=== PATIENT | female | born 1975 | race African-American/Black ===

== ENCOUNTER 2017-06-11 17:22 | Inpatient (IN) | payer BC ==
[~2017-06-11] VITALS: Ht 154.9 cm; Wt 102.2 kg
--- NOTE | 2017-06-11 17:22 | NUR ---
SENT BY DR ROWLEY FOR HYPERTENSION, TOOK LOPRESSOR 100MG METOPROLOL 100MG, NORVASC 10 THIS AM AROUND 10AM. PLACED ON MONITOR. AWAITING MD ORDER
[2017-06-11] MEDS ORDERED: FUROSEMIDE 40 MG/4 ML VIAL IV ONE (18:00)
[2017-06-11] MEDS ORDERED: FUROSEMIDE 40 MG/4 ML VIAL ONE (18:19)
[2017-06-11 18:21] LABS: BASOPHILS # (AUTO) 0.5 /CMM (0.0-0.2); BASOPHILS % (AUTO) 2.6 % (0.0-2.0); EOSINOPHILS % (AUTO) 0.4 % (0.0-6.0); HEMATOCRIT 40 % (33-45); HEMOGLOBIN 13.3 g/dL (11.5-14.8); LYMPHOCYTES # (AUTO) 5.2 /CMM (0.8-4.8); LYMPHOCYTES % (AUTO) 27.4 % (20.0-44.0); MEAN CORPUSCULAR HGB CONC 34 g/dl (31.0-36.0); MEAN CORPUSCULAR VOLUME 82 fL (82-100); MONOCYTES # (AUTO) 0.9 /CMM (0.1-1.30); NEUTROPHILS # (AUTO) 12.2 /CMM (1.8-8.9); NEUTROPHILS % (AUTO) 64.6 % (43.0-81.0); PLATELET COUNT (AUTO) 329 /CMM (150-450); RDW COEFFICIENT OF VARIATION 14.4 (11.5-15.0); RED BLOOD CELL COUNT(AUTO) 4.81 MIL/uL (4.0-5.2); WHITE BLOOD COUNT (AUTO) 18.9 K/uL (4.3-11.0)
[2017-06-11] MEDS ORDERED: METO100T14 PO (18:30)
[2017-06-11] MEDS ORDERED: SPIR25TA6 PO (18:30)
[2017-06-11] MEDS ORDERED: DAPA5TAB PO (18:30)
[2017-06-11] MEDS ORDERED: METF-440 PO (18:30)
[2017-06-11] MEDS ORDERED: ATOR20TA PO (18:30)
[2017-06-11] MEDS ORDERED: AMLO10TA6 PO (18:30)
[2017-06-11] MEDS ORDERED: LOSA50TA21 PO (18:30)
[2017-06-11 18:33] LABS: CALCIUM, SERUM 9.8 mg/dL (8.5-10.1); CREATININE 1.5 mg/dL (0.6-1.3); POTASSIUM 3.6 mmol/L (3.5-5.1)
[2017-06-11 18:45] LABS: ALBUMIN 4.1 g/dL (3.4-5.0); BILIRUBIN,DIRECT 0.1 mg/dL (0.0-0.2); BILIRUBIN,TOTAL 0.3 mg/dL (0.2-1.0); TOTAL PROTEIN, SERUM 8.6 g/dL (6.4-8.2)
--- NOTE | 2017-06-11 19:03 | NUR ---
CALLED DR KARLENE SARAH OFFICE AND A PAGE WAS SENT OUT.
--- NOTE | 2017-06-11 19:53 | NUR ---
DR. ROWLEY CALLED AGAIN; MESSAGE LEFT
--- NOTE | 2017-06-11 20:11 | NUR ---
REPORT GIVEN TO LUTHER
[2017-06-11 20:25] VITALS: BP 172/110
[2017-06-11 20:30] VITALS: BP 172/110
--- NOTE | 2017-06-11 20:30 | NUR ---
FISH AND WILDLIFE BIOLOGIST NOTES ADMITTED FROM ER UNDER THE SERVICE OF DR ROWLEY.CAME PER RAHAT WITH CHIEF COMPLAINTS OF INCREASED BLOOD PRESSURE.A/O X4,BREATHING REGULAR,WITH KNOWN HX OF HIGH BLOOD PRESSURE.WAS GIVEN LASIX 40MG IV IN ER.ON,FLOOR,VITAL SIGNS OF BP 172/110,PULSE-75,RR-2-,ORAL TEMP-98.2,O2 SAT 96% ON RA.DENIES HEADACHE OR CHEST PAIN.NO SKIN ISSUES,AMBULATORY.SALINE LOCK LFA INTACT AND PATENT.CALL LIGHT IN REACH,NEEDS ANTICIPATED.
--- NOTE | 2017-06-11 20:40 | NUR ---
RUG DRYING MACHINE OPERATOR NOTES DR ROWLEY WAS PAGE AWAITING TO CALL BACK.
--- NOTE | 2017-06-11 20:45 | NUR ---
BUSINESS DIRECTOR NOTES DR ROWLEY CALLED BACK WITH ORDERS NOTED AND CARRIED OUT.
[2017-06-11] MEDS ORDERED: ZOLPIDEM TARTRATE 10 MG TABLET PO PRN (21:30)
[2017-06-11] MEDS ORDERED: DEXTROSE 50%-WATER 50 ML DISP.SYRIN IV PRN (22:00)
[2017-06-11] MEDS ORDERED: ISOSORBIDE DINITRATE (10MG) 10 MG TABLET PO SCH (22:00)
[2017-06-11] MEDS ORDERED: hydrALAZINE HCL 25 MG TABLET PO SCH (22:00)
[2017-06-11] MEDS: ASPIRIN 81 MG TAB.CHEW PO SCH (22:06)
--- NOTE | 2017-06-11 22:06 | NUR ---
ROW BOSS HOEING NOTES STARTED ON APRESOLINE 25MG PO,ASPIRIN 81MG PO,ISORDIL 10MG PO AND LIPITOR 20MG PO ORDERED FOR BLOOD PRESSURE 172/110.
[2017-06-11] MEDS: ATORVASTATIN 10 MG TABLET PO SCH (22:07)
[2017-06-11] MEDS: BLOOD SUGAR DIAGNOSTIC 1 EACH STRIP VI SCH (22:07)
--- NOTE | 2017-06-11 22:15 | NUR ---
LEAD SQL DEVELOPER NOTES ACCU-CHECK BLOOD SUGAR CHECK 195,REFUSED INSULIN COVERAGE.SHE WANTS TO HOLD IT FOR NOW AND START TOMORROW
[2017-06-11] MEDS: *INSULIN REGULAR(HUMULIN R)HUM 100 UNIT/ML VIAL SQ PRN (22:17)
--- NOTE | 2017-06-11 22:30 | NUR ---
HELPDESK SPECIALIST NOTES SR 91 ON TELE MONITOR
[2017-06-12] VITALS: BP 144/95
--- NOTE | 2017-06-12 01:00 | NUR ---
PLASTERER SPRAY GUN NOTES SOUND ASLEEP,KEPT WARM ND COMFORTABLE.
[2017-06-12] MEDS: ACETAMINOPHEN 325 MG TABLET PO PRN ×4 (03:45→21:04)
--- NOTE | 2017-06-12 03:45 | NUR ---
BUTADIENE CONVERTER OPERATOR NOTES C/O HEADACHE,TYLENOL 650MG PO GIVEN ORDERED FOR HEADACHE.
[2017-06-12 04:00] VITALS: BP 158/96
--- NOTE | 2017-06-12 06:50 | NUR ---
VOICE STUDIES DIRECTOR NOTES BLOOD SUGAR CHECK 119,NO INSULIN COVERAGE.MRI CHECK LIST DONE FOR MRA OF RENAL ARTERIES TO R/O RENAL ARTERY STENOSIS.U/A STILL NEEDED FOR VMA RANDOM.CALL LIGHT IN REACH,NEEDS ATTENDED.WILL ENDORSE TO DAY NURSE FOR EMMETT.
--- NOTE | 2017-06-12 06:57 | NUR ---
TEXTED DR. HIRSCH FOR MRI APPROVAL.
--- NOTE | 2017-06-12 07:20 | NUR ---
MANAGER OF PRODUCT OPENING NOTES PATIENT RECEIVED AWAKE IN BED IN NO ACUTE SIGNS OF DISTRESS. DAUGHTER AT BEDSIDE, A/O X4, SAME ABLE TO MAKE NEEDS KNOWN, NO C/O PAIN OR DISCOMFORTS AT THIS TIME. ON ROOM AIR, RESPIRATIONS EVEN AND UNLABORED. ON TELE- MONITORING WITH CURRENT READING OF SR AND HR OF 72. IV ACCESS ON LEFT FA G#20 INTACT AND PATENT. BED IN LOW/LOCKED POSITION. CALL LIGHT WITHIN REACH. WILL CONTINUE TO MONITOR.
[2017-06-12] MEDS: BLOOD SUGAR DIAGNOSTIC 1 EACH STRIP VI SCH ×4 (07:37→21:04)
[2017-06-12 07:57] LABS: BASOPHILS # (AUTO) 0.1 /CMM (0.0-0.2); BASOPHILS % (AUTO) 1.2 % (0.0-2.0); EOSINOPHILS % (AUTO) 1.2 % (0.0-6.0); HEMATOCRIT 37 % (33-45); HEMOGLOBIN 12.5 g/dL (11.5-14.8); LYMPHOCYTES % (AUTO) 32.9 % (20.0-44.0); MEAN CORPUSCULAR HGB CONC 34 g/dl (31.0-36.0); MEAN CORPUSCULAR VOLUME 82 fL (82-100); MONOCYTES # (AUTO) 0.5 /CMM (0.1-1.30); MONOCYTES % (AUTO) 4.1 % (2.0-12.0); NEUTROPHILS # (AUTO) 7.5 /CMM (1.8-8.9); NEUTROPHILS % (AUTO) 60.6 % (43.0-81.0); PLATELET COUNT (AUTO) 260 /CMM (150-450); RDW COEFFICIENT OF VARIATION 14.2 (11.5-15.0); RED BLOOD CELL COUNT(AUTO) 4.53 MIL/uL (4.0-5.2); WHITE BLOOD COUNT (AUTO) 12.2 K/uL (4.3-11.0)
[2017-06-12 08:02] LABS: CALCIUM, SERUM 8.8 mg/dL (8.5-10.1); CREATININE 1.3 mg/dL (0.6-1.3); POTASSIUM 3.8 mmol/L (3.5-5.1)
[2017-06-12] MEDS: FUROSEMIDE 40 MG/4 ML VIAL IV SCH ×2 (09:13→17:24)
[2017-06-12] MEDS: AMLODIPINE BESYLATE 10 MG TABLET PO SCH (09:14)
[2017-06-12] MEDS: ISOSORBIDE DINITRATE (20MG) 20 MG TABLET PO SCH ×2 (09:15→17:00)
[2017-06-12] MEDS: ASPIRIN 81 MG TAB.CHEW PO SCH (09:15)
[2017-06-12] MEDS: SPIRONOLACTONE 25 MG TABLET PO SCH ×2 (09:15→17:27)
[2017-06-12] MEDS: LOSARTAN POTASSIUM 50 MG TABLET PO SCH ×2 (09:15→17:25)
[2017-06-12] MEDS: METOPROLOL TARTRATE 50 MG TABLET PO SCH ×2 (09:16→21:05)
[2017-06-12] MEDS: hydrALAZINE HCL 50 MG TABLET PO SCH ×3 (09:20→17:27)
[2017-06-12 13:00] VITALS: BP 139/92
[2017-06-12] MEDS ORDERED: GADOVERSETAMIDE 5 MMOL/10 ML VIAL IJ ONE (13:13)
[2017-06-12] MEDS ORDERED: GADOVERSETAMIDE 2.5 MMOL/5 ML VIAL IJ ONE (13:13)
[2017-06-12] MEDS: INSULIN REGULAR, HUMAN 100 UNIT/ML 3 ML VIAL SQ PRN ×2 (13:19→17:29)
--- NOTE | 2017-06-12 13:23 | NUR ---
RN NOTES PATIENT JUST HAD MRI OF ABDOMEN W/WO CONTRAST, RESULTS PENDING. NO SIGNS OF DISTRESS NOTED. BLOOD SUGAR CHECKED, 140 MGDL, PATIENT REFUSED INSULIN COVERAGE. WILL CONTINUE TO MONITOR.
--- NOTE | 2017-06-12 16:00 | NUR ---
RN NOTES PATIENT C/O HEADACHE, PRN TYLENOL TAB 650 MG GIVEN, WILL CONTINUE TO MONITOR.
[2017-06-12 16:22] VITALS: BP 155/101
--- NOTE | 2017-06-12 17:30 | NUR ---
RN NOTES PATIENT WITH BLOOD SUGAR OF 150MGDL AT THIS TIME, PT REFUSING INSULIN COVERAGE STATING THAT 150MMG/DL IS NOT HIGH FOR HER. WILL CONTINUE TO MONITOR.
[2017-06-12 18:14] LABS: APPEARANCE,URINE CLEAR (CLEAR); BILIRUBIN,URINE NEGATIVE (NEGATIVE); BLOOD, URINE NEGATIVE Ery/uL (NEGATIVE); COLOR,URINE YELLOW (YELLOW); KETONES,URINE NEGATIVE (NEGATIVE); LEUKOCYTE ESTERASE ,URINE NEGATIVE (NEGATIVE); NITRITE, URINE NEGATIVE (NEGATIVE); PH,URINE 6.5 (5.0-8.0); PROTEIN,URINE 1+ mg/dl (NEGATIVE); UGLUCOSE NEGATIVE (NEGATIVE); UROBILINOGEN,URINE 0.2 EU/dL (0.2)
[2017-06-12 18:39] LABS: BACTERIA,URINE None seen /HPF (None Seen); RBC,URINE NONE SEEN /HPF (0-2); SQUAMOUS EPITHELIAL CELL,UR Few /HPF (None Seen); WBC,URINE 0-2 /HPF (0-3)
--- NOTE | 2017-06-12 18:43 | NUR ---
GREASE AND TALLOW PUMPER CLOSING NOTES PATIENT AWAKE AND RESTING COMFORTABLY IN BED WITH DAUGHTER AT BEDSIDE. A/O X4. AMBULATORY AND VERBALLY RESPONSIVE. PT TOLERATING ROOM AIR WITH NO ACUTE RESPIRATORY DISTRESS NOTED. ON TELE- MONITORING WITH CURRENT READING OF SR AND HR OF 78. IV ACCESS ON LEFT FA G#20 INTACT AND PATENT, FLUSHES EASILY. HOB ELEVATED. MAINTAINED BED IN LOW/LOCKED POSITION. CALL LIGHT AND BEDSIDE TABLE PLACED WITHIN EASY REACH OF PT. ALL NEEDS AND CARE ATTENDED WELL. WILL ENDOSRED TO VETERINARY SURGERY TECHNICIAN NURSE FOR EMMETT.
--- NOTE | 2017-06-12 19:50 | NUR ---
NETWORK PROFESSIONAL INITIAL NOTE PT IS IN BED AWAKE AND ALERT, ABLE TO MAKE NEEDS KNOWN. DAUGHTER AT BEDSIDE. NO SIGNS OF SOB OR DISTRESS, BREATHING EVENLY AND UNLABORED ON RA. PT COMPLAINTS OF HAVING HEADACHES THROUGHOUT THE DAY AND BELIEVES IT MAY BE CAUSED BY ALL THE HTN MEDICATIONS SHE WAS GIVEN. NO HEADACHE AT THIS TIME. IV ACCESS IS INTACT AND PATENT. BED IS IN LOW AND LOCKED POSITION, CALL LIGHT WITHIN REACH. WILL CONTINUE TO MONITOR PT.
[2017-06-12 20:00] VITALS: BP 146/94
[2017-06-12] MEDS: ATORVASTATIN 10 MG TABLET PO SCH (21:05)
[2017-06-12] MEDS: *INSULIN REGULAR(HUMULIN R)HUM 100 UNIT/ML VIAL SQ PRN (21:31)
[2017-06-13] VITALS: BP 143/83
[2017-06-13 04:20] VITALS: BP 165/89
[2017-06-13 05:10] VITALS: BP 156/95
[2017-06-13] MEDS: BLOOD SUGAR DIAGNOSTIC 1 EACH STRIP VI SCH ×3 (06:06→17:22)
[2017-06-13] MEDS: INSULIN REGULAR, HUMAN 100 UNIT/ML 3 ML VIAL SQ PRN ×3 (06:06→17:22)
--- NOTE | 2017-06-13 06:07 | NUR ---
PRODUCER CLOSING NOTE PT IS IN BED AWAKE AND ALERT, ABLE TO MAKE NEEDS KNOWN. NO SIGNS OF SOB OR DISTRESS. PT CONTINUES TO REFUSE INSULIN- WILL ENDORSE TO FOLLOW UP ON METFORMIN. HEADACHE WAS RESOLVED WITH TYLENOL. NO ACUTE CHANGES THROUGHOUT THE SHIFT. ALL NEEDS WERE ANTICIPATED AND MET. BED IS IN LOW AND LOCKED POSITION, CALL LIGHT WITHIN REACH. WILL ENDORSE TO DAYSHIFT.
--- NOTE | 2017-06-13 07:22 | NUR ---
MANAGER INTERVENTIONAL OPENING NOTES RECEIVED PATIENT IN BED AWAKE IN BED A/O X4 IN NO ACUTE SIGNS OF DISTRESS. HOB ELEVATED. VERBALLY RESPONSIVE, NO C/O PAIN OR DISCOMFORTS AT THIS TIME. ON ROOM AIR, RESPIRATIONS EVEN AND UNLABORED. ON TELE- MONITORING WITH CURRENT READING OF SR AND HR OF 78. IV ACCESS ON LEFT FA G#20 INTACT AND PATENT. BED IN LOW/LOCKED POSITION. CALL LIGHT WITHIN REACH. WILL CONTINUE TO MONITOR
[2017-06-13 08:00] VITALS: BP 135/89
[2017-06-13] MEDS: FUROSEMIDE 40 MG/4 ML VIAL IV SCH (08:17)
[2017-06-13] MEDS: ISOSORBIDE DINITRATE (20MG) 20 MG TABLET PO SCH (08:18)
[2017-06-13] MEDS: ASPIRIN 81 MG TAB.CHEW PO SCH (08:18)
[2017-06-13] MEDS: AMLODIPINE BESYLATE 10 MG TABLET PO SCH (08:19)
[2017-06-13] MEDS: SPIRONOLACTONE 25 MG TABLET PO SCH ×2 (08:19→16:35)
[2017-06-13] MEDS: METOPROLOL TARTRATE 50 MG TABLET PO SCH (08:20)
[2017-06-13] MEDS: LOSARTAN POTASSIUM 50 MG TABLET PO SCH (08:20)
[2017-06-13] MEDS: hydrALAZINE HCL 50 MG TABLET PO SCH ×3 (09:00→16:39)
[2017-06-13] MEDS ORDERED: VALSARTAN 80 MG TABLET PO SCH (09:30)
[2017-06-13] MEDS: ACETAMINOPHEN 325 MG TABLET PO PRN (09:36)
[2017-06-13 10:03] LABS: ALBUMIN 3.4 g/dL (3.4-5.0); BILIRUBIN,TOTAL 0.5 mg/dL (0.2-1.0); CALCIUM, SERUM 8.8 mg/dL (8.5-10.1); CREATININE 1.4 mg/dL (0.6-1.3); POTASSIUM 3.4 mmol/L (3.5-5.1); TOTAL PROTEIN, SERUM 7.2 g/dL (6.4-8.2)
--- NOTE | 2017-06-13 10:11 | NUR ---
RN NOTES PATIENT COMPLAINTS OF HEADACHE THIS MORNING AFTER TAKING HER MULTIPLE BLOOD PRESSURE MEDS. PT ALSO VERBALIZED TO DR SR ABOUT HER HEADACHE AND DR SR SAID TO CHANGE OR DC SOME OF HER MEDS. PRN TYLENOL 650MG PO GIVEN WITH RELIEF. WILL CONTINUE TO MONITOR. .
--- NOTE | 2017-06-13 10:15 | NUR ---
RN NOTES PATIENT WITH NEW ORDER OF DIOVAN TAB 160MG DAILY FROM DR SR. BP TAKEN AND WAS 155/92MMHG, DIOVAN 160MG GIVEN ORDERED. WILL CONTINUE TO MONITOR.
--- NOTE | 2017-06-13 11:25 | NUR ---
RN NOTES PATIENT WITH LOW POTASSIUM LEVEL 3.4, K-DUR 40MEQ TAB WILL BE GIVEN.
[2017-06-13] MEDS ORDERED: POTASSIUM CHLORIDE 20 MEQ TAB.PRT.SR PO ONE (12:00)
[2017-06-13 16:00] VITALS: BP 155/99
--- NOTE | 2017-06-13 17:14 | NUR ---
RN NOTES PATIENT NOTED WITH BP OF 155/99 AT 1630, STANDING ORDER HYDRALAZINE 100MG TAB AND SPIRONOLACTONE 25MG TABH GIVEN. PT REQUESTED TO HAVE BP RECHECKED AT 1715 AND WAS 164/111MMHG. PT VERY CONCERNS THAT HER BP IS NOT STABLE YET. LEFT MESSAGE TO DR ROWLEY, AWAITING FOR RESPONSE.
--- NOTE | 2017-06-13 17:23 | NUR ---
RN NOTES PATIENT WITH BS OF 156 MGDL TGHIS AFTERNOON AND REFUSED INSULIN COVERAGE. WILL CONTINUE TO MONITOR.
--- NOTE | 2017-06-13 18:08 | NUR ---
RN NOTES DR ROWLEY CAME AND SPOKE TO PATIENT REGARDING HER CURRENT STATUS, SAME EXPLAINED HER MEDICATION TO BE TAKEN AT HOME, PT VERBALIZED UNDERSTANDING. DR ROWLEY ORDER TO DISCHARGE PATIENTS HOME TONIGHT.
--- NOTE | 2017-06-13 18:19 | NUR ---
MS RN CLOSING NOTES PATIENT IN BED AWAKE AND RESTING AT MODERATE HIGH BACKREST POSITION. A/O X4. AMBULATORY AND VERBALLY RESPONSIVE, ENCOURAGED TO RELAXED AND AVOID STRESSING HERSELF ESPECIALLY THAT SHE'S TO BE DISCHARGED TONIGHT. pT TOLERATING ROOM AIR WITH NO SOB NOTED, SP02 99%. IV ACCESS ON LEFT FA G#20 INTACT AND PATENT, FLUSHES EASILY. HOB ELEVATED. MAINTAINED BED IN LOW/LOCKED POSITION. CALL LIGHT AND BEDSIDE TABLE PLACED WITHIN EASY REACH OF PT. ALL NEEDS AND CARE ATTENDED WELL. WILL ENDORSED TO CASKET LINER .
--- NOTE | 2017-06-13 19:26 | NUR ---
MS/RN NOTES RECEIVED PT. SITTING UP IN BED. PT. IS AWAKE, ALERT AND ORIENTED X4. BREATHING EVEN AND UNLABORED ON ROOM AIR. NO SOB, RESPIRATORY DISTRESS OR COMPLAINTS OF PAIN NOTED AT THIS TIME. PT. WITH LEFT FOREARM 20 GAUGE IV SALINE LOCK PRESENT, PATENT AND INTACT. PER DAYSHIFT NURSE PT. IS PENDING DISCHARGE TO HOME TONIGHT, PT. IS AWAITING TO BE PICKED UP BY HER DAUGHTER. PER DAYSHIFT NURSE PT. EXIT-CARE COMPLETED, PT. BELONGINGS LIST AND DISCHARGE INSTRUCTIONS SIGNED, ORIGINALS PLACED IN PT. CHART AND COPY PROVIDED TO PT. WILL CONTINUE TO MONITOR.
[2017-06-13 20:02] VITALS: BP 140/91
--- NOTE | 2017-06-13 20:40 | NUR ---
MS/RN NOTES PT. VITAL SIGNS STABLE. PT. IS SITTING UP IN BED, AWAKE, ALERT AND ORIENTED X4. BREATHING EVEN AND UNLABORED ON ROOM AIR. NO SOB, RESPIRATORY DISTRESS OR COMPLAINTS OF PAIN NOTED AT THIS TIME. PT. EXIT-CARE COMPLETED, PT. BELONGINGS LIST AND DISCHARGE INSTRUCTIONS SIGNED, ORIGINALS PLACED IN PT. CHART AND COPY PROVIDED TO PT. REMOVED PT. IV ACCESS. NO BLEEDING OR S/S OF INFECTION NOTED. PT. LEFT THE FLOOR WITH ALL BELONGINGS ACCOMPANIED BY MAT MACHINE OPERATOR AT 2039.
== END 2017-06-13 20:40 | disposition home or self-care (01) | DRG 292 ==
LOC: ER 17:24 → TELE 19:59 → MED 06-13 09:49
PROVIDERS: ADMIT Internal Medicine; ATTEND Internal Medicine
DX: I11.0 Hypertensive heart disease with heart failure (principal); Z68.41 Body mass index [BMI] 40.0-44.9, adult; E11.9 Type 2 diabetes mellitus without complications; Z88.8 Allergy status to other drugs, medicaments and biological substances; Z79.84 Long term (current) use of oral hypoglycemic drugs; Z79.899 Other long term (current) drug therapy; E66.9 Obesity, unspecified; Z90.49 Acquired absence of other specified parts of digestive tract; Z87.891 Personal history of nicotine dependence; Z83.3 Family history of diabetes mellitus; J45.909 Unspecified asthma, uncomplicated; F41.9 Anxiety disorder, unspecified; I50.30 Unspecified diastolic (congestive) heart failure
CPT/HCPCS: 36415; 71045-TC; 74183-TC; 80048-TC; 80053-TC; 80076-TC; 81000-TC; 82962-TC; 83880; 85025-TC; 87081-TC; 93307-TC; A4606; A9579; J1815; J1940; Z7610